=== PATIENT | male | born 1940 | race Caucasian/White ===

== ENCOUNTER 2017-01-18 09:35 | Inpatient (IN) | payer MEDICARE, BC ==
[2017-01-18] VITALS (9 sets, daily range): BP systolic 105–156; BP diastolic 50–83; PULSE 82–87; TEMP 97.5–97.7
[~2017-01-18] VITALS: Ht 175.3 cm; Wt 47.4 kg
[~2017-01-18 09:35] MED LIST: ATENOLOL25 MG PO; B-1100 MG PO; CALCIUM 500500 M2 PO; CENTRUM SILVER1 TAB; CEPHALEXIN500 M1 PO; CLARITIN-D 10 M1 T24 PO; DALMANE30 MG PO; DUO-KAPS1 CAP PO; FLONASE NASAL S16 GM; FOLIC ACID 11 MG/TA1 PO; FOLIC ACID0.8 MG PO; HALCION0.25 MG PO; HCTZ 25MG TAB25 MG PO; HYDRALAZINE HCL25 MG PO; HYDROCHLOR50 MG PO; MASON NATURAL600 MG; NATURE'S BLEND100 M2; NORCO 325 MG-101 TAB PO; OS-CAL 500 + D1 TAB; PRINIVIL20 MG PO; RED YEAST RICE PO; RESTORIL 1515 MG/CAP PO; SINE OFF; TENORMIN 2525 MG/TAB PO; VITAL-D1 TAB PO; [UNRECOGNIZED DRUG - OTHER] PO; [UNRECOGNIZED DRUG - REMARK]
[2017-01-18 10:10] LABS: BASO % 0.2 % (0.0-2.0); EOS % 0.1 % (0-4.0); GRAN # 12.3 (1.4-6.5); GRAN % 79.8 % (42.2-75.2); HEMOGLOBIN 12.3 g/dl (13.5-18.0); LYMPH # 1.5 (1.2-3.4); LYMPH % 9.6 % (20.0-51.0); MEAN CELL VOLUME 98 fl (80.0-100.0); MEAN CORPUSCULAR HEMOGLOBIN 33 pg (27.0-31.0); MEAN CORPUSCULAR HGB CONC 34 g/dl (33.0-37.0); MEAN PLATELET VOLUME 10.1 fl (7.4-10.4); MONO # 1.5 (0.1-0.6); MONO % 9.6 % (1.7-9.3); PLATELET COUNT 290 K/mm3 (130-400); RED BLOOD COUNT 3.75 M/mm3 (4.20-5.60); WHITE BLOOD COUNT 15.3 K/mm3 (4.8-10.8)
[2017-01-18 10:11] LABS: HEMATOCRIT 36.7 % (42.0-52.0)
[2017-01-18 10:23] LABS: ADJUSTED CALCIUM 10.2 mg/dL (8.4-10.2); ALBUMIN 4.3 gm/dL (3.5-5.0); BILIRUBIN,TOTAL 0.6 mg/dL (0.0-1.0); CALCIUM 10.4 mg/dL (8.4-10.2); CREATININE, serum 1.5 mg/dL (0.66-1.25); POTASSIUM 4.8 mmol/L (3.4-5.0); TOTAL PROTEIN 7.2 gm/dL (6.4-8.2)
[2017-01-18] MEDS ORDERED: CLARITIN D TAB1 TAB PO (11:31)
[2017-01-18] MEDS ORDERED: EYE DROP ORIGIN15 ML (11:36)
[2017-01-18] MEDS ORDERED: CLARITIN-D 10 M1 T24 PO (12:31)
[2017-01-18 13:06] LABS: PROTHROMBIN TIME 11.8 SECONDS (9.7-12.8)
[2017-01-19 02:20] VITALS: BP 94/41; PULSE 79; TEMP 98.2
[2017-01-19 05:32] VITALS: BP 145/68; PULSE 85; TEMP 98.2
[2017-01-19 06:54] LABS: CALCIUM 9.5 mg/dL (8.4-10.2); CREATININE, serum 1.33 mg/dL (0.66-1.25); POTASSIUM 5.1 mmol/L (3.4-5.0)
[2017-01-19 09:38] VITALS: BP 131/63; PULSE 93; TEMP 98.3
[2017-01-19 13:26] VITALS: BP 129/60; PULSE 93; TEMP 97.6
[2017-01-19 15:28] LABS: BASO % 0.2 % (0.0-2.0); EOS % 0.2 % (0-4.0); GRAN % 75.2 % (42.2-75.2); LYMPH # 1.5 (1.2-3.4); LYMPH % 11.1 % (20.0-51.0); MEAN CELL VOLUME 99 fl (80.0-100.0); MEAN CORPUSCULAR HGB CONC 33 g/dl (33.0-37.0); MEAN PLATELET VOLUME 10.3 fl (7.4-10.4); MONO # 1.7 (0.1-0.6); MONO % 12.8 % (1.7-9.3); PLATELET COUNT 245 K/mm3 (130-400); RED BLOOD COUNT 3.33 M/mm3 (4.20-5.60); WHITE BLOOD COUNT 13.3 K/mm3 (4.8-10.8)
[2017-01-19 15:30] LABS: HEMATOCRIT 32.8 % (42.0-52.0); HEMOGLOBIN 10.7 g/dl (13.5-18.0); MEAN CORPUSCULAR HEMOGLOBIN 32 pg (27.0-31.0)
[2017-01-19 17:08] VITALS: BP 113/85; PULSE 107; TEMP 98.1
[2017-01-19 21:43] VITALS: BP 125/66; PULSE 106; TEMP 98.4
[2017-01-20 02:04] VITALS: BP 123/47; PULSE 89; TEMP 98.4
[2017-01-20 05:18] VITALS: BP 145/54; PULSE 85; TEMP 98.1
[2017-01-20 06:47] LABS: BASO % 0.2 % (0.0-2.0); EOS # 0.1 (0.0-0.7); EOS % 0.4 % (0-4.0); GRAN # 7.8 (1.4-6.5); GRAN % 69.1 % (42.2-75.2); LYMPH # 1.9 (1.2-3.4); LYMPH % 16.6 % (20.0-51.0); MEAN CELL VOLUME 99 fl (80.0-100.0); MEAN CORPUSCULAR HGB CONC 32 g/dl (33.0-37.0); MEAN PLATELET VOLUME 10.3 fl (7.4-10.4); MONO # 1.5 (0.1-0.6); MONO % 13.3 % (1.7-9.3); PLATELET COUNT 238 K/mm3 (130-400); RED BLOOD COUNT 2.97 M/mm3 (4.20-5.60); WHITE BLOOD COUNT 11.2 K/mm3 (4.8-10.8)
[2017-01-20 06:55] LABS: HEMATOCRIT 29.4 % (42.0-52.0); HEMOGLOBIN 9.5 g/dl (13.5-18.0); MEAN CORPUSCULAR HEMOGLOBIN 32 pg (27.0-31.0)
[2017-01-20 07:04] LABS: CALCIUM 9.2 mg/dL (8.4-10.2); CREATININE, serum 1.02 mg/dL (0.66-1.25); POTASSIUM 4.1 mmol/L (3.4-5.0)
[2017-01-20 09:25] VITALS: BP 130/43; PULSE 102; TEMP 98.7
[2017-01-20 13:18] VITALS: BP 101/46; PULSE 91; TEMP 97.2
[2017-01-20 17:09] VITALS: BP 128/64; PULSE 103; TEMP 97.7
[2017-01-20 21:56] VITALS: BP 142/48; PULSE 110; TEMP 98.9
[2017-01-21 02:34] VITALS: BP 96/49; PULSE 102; TEMP 98.5
[2017-01-21 05:44] VITALS: BP 105/48; PULSE 91; TEMP 98.4
[2017-01-21 10:29] VITALS: BP 118/56; PULSE 78; TEMP 98.1
[2017-01-21 13:33] VITALS: BP 105/48; PULSE 114; TEMP 98.3
[2017-01-21 17:38] VITALS: BP 97/51; PULSE 101; TEMP 98.2
[2017-01-21 22:00] VITALS: BP 95/52; PULSE 104; TEMP 98.2
[2017-01-22 02:25] VITALS: BP 100/48; PULSE 85; TEMP 98.5
[2017-01-22 05:59] VITALS: BP 101/53; PULSE 88; TEMP 97.9
[2017-01-22 06:45] LABS: CALCIUM 9.8 mg/dL (8.4-10.2)
[2017-01-22 07:02] LABS: CREATININE, serum 1.08 mg/dL (0.66-1.25); POTASSIUM 4.2 mmol/L (3.4-5.0)
[2017-01-22] MEDS ORDERED: FLOMAX 0.40.4 MG/CAP PO (07:59)
[2017-01-22] MEDS ORDERED: ASPI325T6 PO (08:00)
[2017-01-22] MEDS ORDERED: TYLENOL 325MG325 MG PO (08:01)
[2017-01-22] MEDS ORDERED: SENOKOT S 50 MG1 TAB PO (08:02)
[2017-01-22] MEDS ORDERED: VITAMINC500CH PO (08:02)
[2017-01-22] MEDS ORDERED: GOOD NEIGH1200 MG/15 PO (08:02)
[2017-01-22] MEDS ORDERED: DULCOLAX S10 MG/SUPP RC (08:02)
[2017-01-22] MEDS ORDERED: NORCO 325 MG-51 TAB PO (08:03)
[2017-01-22 10:00] VITALS: BP 132/72; PULSE 99; TEMP 98.1
[2017-01-22 16:01] VITALS: BP 132/72; PULSE 99; TEMP 98.1
== END 2017-01-22 16:15 | DRG 481 ==
LOC: COL.ER 09:35 → SURG 10:29
PROVIDERS: Family Medicine; Orthopaedic Surgery; Physician Assistant
PROC: 0QS604Z Reposition Right Upper Femur with Internal Fixation Device, Open Approach (ICD-10-PCS; principal; 2017-01-18 17:00)
DX: S72.141A Displaced intertrochanteric fracture of right femur, initial encounter for closed fracture (principal); N17.9 Acute kidney failure, unspecified; E44.0 Moderate protein-calorie malnutrition; Z68.1 Body mass index [BMI] 19.9 or less, adult; E87.1 Hypo-osmolality and hyponatremia; I10 Essential (primary) hypertension; G47.00 Insomnia, unspecified; D64.9 Anemia, unspecified; R33.9 Retention of urine, unspecified; W01.0XXA Fall on same level from slipping, tripping and stumbling without subsequent striking against object, initial encounter; Z87.891 Personal history of nicotine dependence
CPT/HCPCS: 99222-AI; 99231-AI; 99232-AI; 99239; A9284; C1713; C1769; C1776; J0690; J2250; J2270; J2310; J2405; J2704; J2765; J3010; J7120

== ENCOUNTER → 2017-01-26 | Outpatient (CLI) | payer MEDICARE, BC ==
[~2017-01-26] MED LIST changes: +AMOXICILLIN 8751 TAB PO; +ASPI325T6 PO; +CLARITIN D TAB1 TAB PO; +DULCOLAX S10 MG/SUPP RC; +EYE DROP ORIGIN15 ML; +FLOMAX 0.40.4 MG/CAP PO; +GOOD NEIGH1200 MG/15 PO; +LOPRESSOR 225 MG/TAB PO; +NORCO 325 MG-51 TAB PO; +SENOKOT S 50 MG1 TAB PO; +TYLENOL 325MG325 MG PO; +VITAMINC500CH PO; +ZESTRIL 5MG5 MG PO
== END ==
LOC: COL.RAD 17:37
DX: R05 Cough (principal)

== ENCOUNTER → 2017-02-05 | Outpatient (REF) ==
[2017-02-05 16:10] LABS: MEAN CELL VOLUME 99 fl (80.0-100.0); MEAN CORPUSCULAR HGB CONC 33 g/dl (33.0-37.0); MEAN PLATELET VOLUME 11.6 fl (7.4-10.4); PLATELET COUNT 386 K/mm3 (130-400); RED BLOOD COUNT 3.56 M/mm3 (4.20-5.60); WHITE BLOOD COUNT 13.7 K/mm3 (4.8-10.8)
[2017-02-05 16:13] LABS: CALCIUM 8.7 mg/dL (8.4-10.2); CREATININE, serum 1.03 mg/dL (0.66-1.25); POTASSIUM 3.4 mmol/L (3.4-5.0)
[2017-02-05 16:17] LABS: HEMATOCRIT 35.1 % (42.0-52.0); HEMOGLOBIN 11.4 g/dl (13.5-18.0); MEAN CORPUSCULAR HEMOGLOBIN 32 pg (27.0-31.0)
== END ==
LOC: ZLAB.STJ 16:00
DX: E87.6 Hypokalemia (principal); D64.9 Anemia, unspecified

== ENCOUNTER → 2017-02-07 | Outpatient (REF) ==
[2017-02-07 10:11] LABS: BASO # 0.1 (0.0-0.2); BASO % 0.5 % (0.0-2.0); EOS # 0.2 (0.0-0.7); EOS % 1.7 % (0-4.0); GRAN # 7.8 (1.4-6.5); GRAN % 67.8 % (42.2-75.2); HEMATOCRIT 37.9 % (42.0-52.0); HEMOGLOBIN 12.1 g/dl (13.5-18.0); LYMPH # 2.3 (1.2-3.4); LYMPH % 20.2 % (20.0-51.0); MEAN CELL VOLUME 98 fl (80.0-100.0); MEAN CORPUSCULAR HEMOGLOBIN 31 pg (27.0-31.0); MEAN CORPUSCULAR HGB CONC 32 g/dl (33.0-37.0); MEAN PLATELET VOLUME 11.9 fl (7.4-10.4); MONO # 1.1 (0.1-0.6); MONO % 9.3 % (1.7-9.3); PLATELET COUNT 370 K/mm3 (130-400); RED BLOOD COUNT 3.87 M/mm3 (4.20-5.60); WHITE BLOOD COUNT 11.5 K/mm3 (4.8-10.8)
== END ==
LOC: ZLAB.STJ 09:54
PROVIDERS: Family Medicine
DX: R68.89 Other general symptoms and signs (principal)

== ENCOUNTER → 2017-02-10 | Outpatient (REF) ==
[2017-02-10 16:54] LABS: BASO # 0.1 (0.0-0.2); BASO % 0.8 % (0.0-2.0); EOS # 0.4 (0.0-0.7); EOS % 3.8 % (0-4.0); GRAN # 6.9 (1.4-6.5); GRAN % 68.8 % (42.2-75.2); HEMATOCRIT 35.7 % (42.0-52.0); HEMOGLOBIN 11.5 g/dl (13.5-18.0); LYMPH # 1.7 (1.2-3.4); LYMPH % 17.4 % (20.0-51.0); MEAN CELL VOLUME 98 fl (80.0-100.0); MEAN CORPUSCULAR HEMOGLOBIN 32 pg (27.0-31.0); MEAN CORPUSCULAR HGB CONC 32 g/dl (33.0-37.0); MEAN PLATELET VOLUME 11.7 fl (7.4-10.4); MONO # 0.9 (0.1-0.6); MONO % 8.9 % (1.7-9.3); PLATELET COUNT 361 K/mm3 (130-400); RED BLOOD COUNT 3.63 M/mm3 (4.20-5.60); REDCELL DISTRIBUTION WIDTH-CV 14.4 % (11.5-14.5)
== END ==
LOC: ZLAB.STJ 16:50
DX: Z01.89 Encounter for other specified special examinations (principal)

== ENCOUNTER 2017-03-14 14:26 | Inpatient (IN) | payer MEDICARE, BC ==
[~2017-03-14] VITALS: Ht 175.3 cm; Wt 44.4 kg
[~2017-03-14 14:26] MED LIST changes: -MASON NATURAL600 MG; +MASON NATURAL600 MG PO
[2017-03-14 15:49] LABS: BASO % 0.2 % (0.0-2.0); EOS % 0.3 % (0-4.0); GRAN # 10.8 (1.4-6.5); GRAN % 76.6 % (42.2-75.2); HEMOGLOBIN 13.1 g/dl (13.5-18.0); LYMPH # 2.3 (1.2-3.4); LYMPH % 16.1 % (20.0-51.0); MEAN CELL VOLUME 96 fl (80.0-100.0); MEAN CORPUSCULAR HEMOGLOBIN 30 pg (27.0-31.0); MEAN CORPUSCULAR HGB CONC 31 g/dl (33.0-37.0); MEAN PLATELET VOLUME 10.7 fl (7.4-10.4); MONO # 0.9 (0.1-0.6); MONO % 6.3 % (1.7-9.3); PLATELET COUNT 375 K/mm3 (130-400); RED BLOOD COUNT 4.38 M/mm3 (4.20-5.60); REDCELL DISTRIBUTION WIDTH-CV 13.2 % (11.5-14.5)
[2017-03-14 15:51] LABS: INR 1.2 (0.8-3.0); PROTHROMBIN TIME 13.9 SECONDS (9.7-12.8)
[2017-03-14 16:05] LABS: ALANINE AMINOTRANSFERASE 39 U/L (21-72); ALBUMIN 3.7 gm/dL (3.5-5.0); ALKALINE PHOSPHATASE 147 U/L (50-136); ANION GAP 13 mmol/L (7-16); AST,SGOT 31 U/L (15-37); BILIRUBIN,TOTAL 0.7 mg/dL (0.0-1.0); BLOOD UREA NITROGEN 80 mg/dL (9-20); CALCIUM 9.6 mg/dL (8.4-10.2); CARBON DIOXIDE 28 mmol/L (22-30); CHLORIDE 106 mmol/L (98-107); CREATININE, serum 2.03 mg/dL (0.66-1.25); GLUCOSE 95 mg/dL (74-106); MAGNESIUM 2.7 mg/dL (1.6-2.3); PHOSPHOROUS 4.5 mg/dL (2.5-4.5); POTASSIUM 4.6 mmol/L (3.4-5.0); SODIUM 147 mmol/L (137-145); TOTAL PROTEIN 7.2 gm/dL (6.4-8.2)
[2017-03-14 16:13] LABS: TROPONIN-I 0.023 ng/mL (0.000-0.034)
[2017-03-14 17:19] LABS: COLLECTION METHOD CATHETER
[2017-03-14 17:27] LABS: PH 5 (5-8); SQUAMOUS EPITHELIAL None Seen /hpf; URINE APPEARANCE Hazy; URINE BACTERIA None Seen /hpf; URINE BILIRUBIN Negative (NEGATIVE); URINE BLOOD Negative (NEGATIVE); URINE COLOR Yellow; URINE GLUCOSE Negative (NEGATIVE); URINE KETONE Trace (NEGATIVE); URINE LEUKOCYTE ESTERASE Negative (NEGATIVE); URINE NITRATE Negative (NEGATIVE); URINE PROTEIN(semi-quant) Negative (NEGATIVE); URINE UROBILINOGEN Negative (NEGATIVE)
[2017-03-14] MEDS ORDERED: CLARITIN-D 10 M1 T24 PO (17:45)
[2017-03-14] MEDS ORDERED: FLONASEALLERGY NS (17:46)
[2017-03-14] MEDS ORDERED: CALCIUM 600-D 61 TAB PO (17:47)
[2017-03-14] MEDS ORDERED: NATURE'S BLEND100 M2 PO ×2 (17:47→20:16)
[2017-03-14] MEDS ORDERED: CENTRUM SILVER1 TAB PO (17:48)
[2017-03-14] MEDS ORDERED: BENADRYL25 M2 PO (17:49)
[2017-03-14] MEDS ORDERED: DALMANE30 MG PO (17:50)
[2017-03-14 19:35] VITALS: BP 131/80; PULSE 102; TEMP 98
[2017-03-14 19:38] VITALS: BP 131/80; PULSE 102; TEMP 98
[2017-03-14 20:07] LABS: ALCOHOL(ethanol),MEDICAL < 10 mg/dL; CREATINE KINASE < 20 U/L (55-170)
[2017-03-14] MEDS ORDERED: FOLIC ACID 11 MG/TA1 PO (20:16)
[2017-03-15] VITALS (7 sets, daily range): BP systolic 100–140; BP diastolic 40–56; PULSE 45–81; TEMP 97.2–97.8
[2017-03-15 04:27] LABS: BASO % 0.4 % (0.0-2.0); EOS # 0.2 (0.0-0.7); EOS % 1.3 % (0-4.0); GRAN # 6.5 (1.4-6.5); GRAN % 57.5 % (42.2-75.2); HEMATOCRIT 41.7 % (42.0-52.0); HEMOGLOBIN 12.7 g/dl (13.5-18.0); LYMPH # 3.9 (1.2-3.4); MEAN CELL VOLUME 98 fl (80.0-100.0); MEAN CORPUSCULAR HEMOGLOBIN 30 pg (27.0-31.0); MEAN CORPUSCULAR HGB CONC 31 g/dl (33.0-37.0); MEAN PLATELET VOLUME 10.7 fl (7.4-10.4); MONO # 0.7 (0.1-0.6); MONO % 6.3 % (1.7-9.3); PLATELET COUNT 328 K/mm3 (130-400); RED BLOOD COUNT 4.27 M/mm3 (4.20-5.60); REDCELL DISTRIBUTION WIDTH-CV 13.1 % (11.5-14.5)
[2017-03-15 04:39] LABS: PARTIAL THROMBOPLASTIN TIME 29.4 SECONDS (26.0-37.0)
[2017-03-15 04:40] LABS: CALCIUM 9.1 mg/dL (8.4-10.2); CREATININE, serum 1.41 mg/dL (0.66-1.25); MAGNESIUM 2.3 mg/dL (1.6-2.3); PHOSPHOROUS 3.5 mg/dL (2.5-4.5); POTASSIUM 4.4 mmol/L (3.4-5.0)
[2017-03-16] VITALS (9 sets, daily range): BP systolic 101–122; BP diastolic 43–63; PULSE 58–104; TEMP 97.9–98.3
[2017-03-16 12:23] LABS: CALCIUM 9.1 mg/dL (8.4-10.2); CREATININE, serum 1.09 mg/dL (0.66-1.25); MAGNESIUM 2.1 mg/dL (1.6-2.3); PHOSPHOROUS 2.5 mg/dL (2.5-4.5)
[2017-03-16 12:33] LABS: POTASSIUM 4.1 mmol/L (3.4-5.0)
[2017-03-16 12:34] LABS: BASO % 0.2 % (0.0-2.0); EOS # 0.2 (0.0-0.7); EOS % 1.9 % (0-4.0); GRAN # 6.2 (1.4-6.5); GRAN % 66.2 % (42.2-75.2); LYMPH # 2.3 (1.2-3.4); LYMPH % 24.7 % (20.0-51.0); MEAN CELL VOLUME 98 fl (80.0-100.0); MEAN CORPUSCULAR HGB CONC 31 g/dl (33.0-37.0); MONO # 0.6 (0.1-0.6); MONO % 6.6 % (1.7-9.3); PLATELET COUNT 273 K/mm3 (130-400); RED BLOOD COUNT 3.54 M/mm3 (4.20-5.60); REDCELL DISTRIBUTION WIDTH-CV 12.9 % (11.5-14.5)
[2017-03-16 12:36] LABS: HEMATOCRIT 34.5 % (42.0-52.0); HEMOGLOBIN 10.8 g/dl (13.5-18.0); MEAN CORPUSCULAR HEMOGLOBIN 31 pg (27.0-31.0)
[2017-03-16 16:56] LABS: PRE ALBUMIN 11.1 mg/dL (17.6-36.0)
[2017-03-16 17:19] LABS: TSH w REFLEX 0.43 uIU/mL (0.465-4.680)
[2017-03-17 00:20] LABS: FOLATE (FOLIC ACID) 15.8 ng/mL (7.0-31.4)
[2017-03-17 04:22] VITALS: BP 117/59; PULSE 58; TEMP 98.2
[2017-03-17 05:39] LABS: TRICYCLIC ANTIDEPRESS URINE NEGATIVE
[2017-03-17 07:28] VITALS: BP 123/61; PULSE 70; TEMP 98
[2017-03-17 07:34] LABS: BASO % 0.2 % (0.0-2.0); EOS # 0.4 (0.0-0.7); EOS % 4.3 % (0-4.0); GRAN # 5.2 (1.4-6.5); GRAN % 59.8 % (42.2-75.2); HEMATOCRIT 37.8 % (42.0-52.0); LYMPH # 2.4 (1.2-3.4); LYMPH % 27.3 % (20.0-51.0); MEAN CELL VOLUME 96 fl (80.0-100.0); MEAN CORPUSCULAR HEMOGLOBIN 31 pg (27.0-31.0); MEAN CORPUSCULAR HGB CONC 32 g/dl (33.0-37.0); MONO # 0.7 (0.1-0.6); MONO % 7.9 % (1.7-9.3); PLATELET COUNT 295 K/mm3 (130-400); RED BLOOD COUNT 3.94 M/mm3 (4.20-5.60); REDCELL DISTRIBUTION WIDTH-CV 12.7 % (11.5-14.5)
[2017-03-17 07:50] LABS: CALCIUM 9.2 mg/dL (8.4-10.2); CREATININE, serum 0.99 mg/dL (0.66-1.25); MAGNESIUM 1.8 mg/dL (1.6-2.3); PHOSPHOROUS 2.7 mg/dL (2.5-4.5); POTASSIUM 3.9 mmol/L (3.4-5.0)
[2017-03-17 11:32] VITALS: BP 109/60; PULSE 75; TEMP 97.5
[2017-03-17 16:18] VITALS: BP 111/43; PULSE 78; TEMP 97.7
[2017-03-17 19:53] VITALS: BP 124/63; PULSE 73; TEMP 98.3
[2017-03-17 23:59] VITALS: BP 146/74; PULSE 69; TEMP 98.4
[2017-03-18 06:29] VITALS: BP 145/87; PULSE 81; TEMP 98.7
[2017-03-18 07:03] LABS: BASO % 0.3 % (0.0-2.0); EOS # 0.3 (0.0-0.7); EOS % 2.8 % (0-4.0); GRAN # 5.4 (1.4-6.5); HEMATOCRIT 38.3 % (42.0-52.0); LYMPH # 3.1 (1.2-3.4); MEAN CELL VOLUME 97 fl (80.0-100.0); MEAN CORPUSCULAR HEMOGLOBIN 30 pg (27.0-31.0); MEAN CORPUSCULAR HGB CONC 31 g/dl (33.0-37.0); MEAN PLATELET VOLUME 11.2 fl (7.4-10.4); MONO # 0.8 (0.1-0.6); MONO % 8.5 % (1.7-9.3); PLATELET COUNT 292 K/mm3 (130-400); RED BLOOD COUNT 3.97 M/mm3 (4.20-5.60); REDCELL DISTRIBUTION WIDTH-CV 12.8 % (11.5-14.5)
[2017-03-18 07:13] LABS: HEMOGLOBIN 11.9 g/dl (13.5-18.0)
[2017-03-18 07:23] LABS: CALCIUM 8.8 mg/dL (8.4-10.2); CREATININE, serum 1.01 mg/dL (0.66-1.25); MAGNESIUM 1.6 mg/dL (1.6-2.3); PHOSPHOROUS 2.7 mg/dL (2.5-4.5); POTASSIUM 3.4 mmol/L (3.4-5.0)
[2017-03-18 07:42] VITALS: BP 131/63; PULSE 55; TEMP 98.3
[2017-03-18 11:44] VITALS: BP 139/59; PULSE 56; TEMP 98.4
[2017-03-18 16:05] VITALS: BP 114/88; PULSE 89; TEMP 98.4
[2017-03-18 20:46] VITALS: BP 137/47; PULSE 79; TEMP 98.5
[2017-03-19] VITALS (7 sets, daily range): BP systolic 90–139; BP diastolic 46–67; PULSE 51–96; TEMP 97.8–99.6
[2017-03-19 07:35] LABS: ALBUMIN 2.7 gm/dL (3.5-5.0); BILIRUBIN,TOTAL 0.4 mg/dL (0.0-1.0); CALCIUM 8.1 mg/dL (8.4-10.2); CREATININE, serum 0.96 mg/dL (0.66-1.25); MAGNESIUM 2.4 mg/dL (1.6-2.3); PHOSPHOROUS 1.9 mg/dL (2.5-4.5); POTASSIUM 3.9 mmol/L (3.4-5.0); TOTAL PROTEIN 5.5 gm/dL (6.4-8.2)
[2017-03-19 07:42] LABS: PRE ALBUMIN 9.5 mg/dL (17.6-36.0)
[2017-03-20 03:51] VITALS: BP 102/64; PULSE 82; TEMP 97.9
[2017-03-20 06:57] LABS: ALBUMIN 3.1 gm/dL (3.5-5.0); BILIRUBIN,TOTAL 0.5 mg/dL (0.0-1.0); CALCIUM 8.6 mg/dL (8.4-10.2); CREATININE, serum 1.06 mg/dL (0.66-1.25); MAGNESIUM 1.8 mg/dL (1.6-2.3); PHOSPHOROUS 2.6 mg/dL (2.5-4.5); POTASSIUM 3.2 mmol/L (3.4-5.0); TOTAL PROTEIN 6.1 gm/dL (6.4-8.2)
[2017-03-20 07:40] VITALS: BP 97/55; PULSE 103; TEMP 97.6
[2017-03-20 11:10] VITALS: BP 92/75; PULSE 62; TEMP 98.7
[2017-03-20 15:51] VITALS: BP 110/94; PULSE 105; PULSE 134; TEMP 98
[2017-03-20 21:19] VITALS: BP 93/57; PULSE 58; TEMP 98.6
[2017-03-21 01:30] VITALS: BP 93/49; PULSE 78; TEMP 98.3
[2017-03-21 04:09] VITALS: BP 107/53; PULSE 98; TEMP 98
[2017-03-21 06:53] LABS: ALBUMIN 2.7 gm/dL (3.5-5.0); BILIRUBIN,TOTAL 0.5 mg/dL (0.0-1.0); CALCIUM 8.6 mg/dL (8.4-10.2); CREATININE, serum 1.12 mg/dL (0.66-1.25); MAGNESIUM 1.7 mg/dL (1.6-2.3); PHOSPHOROUS 2.7 mg/dL (2.5-4.5); POTASSIUM 3.5 mmol/L (3.4-5.0); TOTAL PROTEIN 5.6 gm/dL (6.4-8.2)
[2017-03-21 07:49] VITALS: BP 119/53; PULSE 85; TEMP 97.9
[2017-03-21] MEDS ORDERED: IMDUR 30MG30 MG/TAB PO (11:51)
[2017-03-21] MEDS ORDERED: ASPIRIN 81M81 MG/TA2 PO (11:52)
[2017-03-21] MEDS ORDERED: TYLENOL ELIX32 MG/M2 PO (11:52)
[2017-03-21] MEDS ORDERED: MIRTAZAPINE7.5 MG PO (11:53)
[2017-03-21] MEDS ORDERED: EPA FISH OIL1 SGL PO (11:55)
[2017-03-21 11:59] VITALS: BP 95/45; PULSE 82; TEMP 97.9
[2017-03-21 13:21] VITALS: BP 101/64
[2017-03-21 13:25] VITALS: BP 101/64; PULSE 82; TEMP 97.9
== END 2017-03-21 16:51 | DRG 682 ==
LOC: COL.ER 14:26 → PEDS 17:19 → EDBEDREQ 17:30 → PEDS 03-15 10:00
PROVIDERS: Emergency Medicine; Internal Medicine; Nurse Practitioner Family
PROC: 0DH63UZ Insertion of Feeding Device into Stomach, Percutaneous Approach (ICD-10-PCS; principal; 2017-03-18)
DX: N17.9 Acute kidney failure, unspecified (principal); R65.11 Systemic inflammatory response syndrome (SIRS) of non-infectious origin with acute organ dysfunction; I21.4 Non-ST elevation (NSTEMI) myocardial infarction; E43 Unspecified severe protein-calorie malnutrition; G72.1 Alcoholic myopathy; Z68.1 Body mass index [BMI] 19.9 or less, adult; E87.0 Hyperosmolality and hypernatremia; F10.14 Alcohol abuse with alcohol-induced mood disorder; G62.1 Alcoholic polyneuropathy; S72.141D Displaced intertrochanteric fracture of right femur, subsequent encounter for closed fracture with routine healing; I10 Essential (primary) hypertension; J44.9 Chronic obstructive pulmonary disease, unspecified; Z87.891 Personal history of nicotine dependence; W18.30XA Fall on same level, unspecified, initial encounter; E86.0 Dehydration; E87.6 Hypokalemia; E16.2 Hypoglycemia, unspecified
CPT/HCPCS: 99222-AI; 99232-AI; 99233-AI; 99239; J1644; J2270; J3411; J3475; J3480; J7030; J7070; J7120; J7121

== ENCOUNTER → 2017-04-25 | Outpatient (REF) ==
[~2017-04-25] MED LIST changes: +ASPIRIN 81M81 MG/TA2 PO; +BENADRYL25 M2 PO; +CALCIUM 600-D 61 TAB PO; +CENTRUM SILVER1 TAB PO; +EPA FISH OIL1 SGL PO; +FLONASEALLERGY NS; +IMDUR 30MG30 MG/TAB PO; +MIRTAZAPINE7.5 MG PO; +NATURE'S BLEND100 M2 PO; +TYLENOL ELIX32 MG/M2 PO
[2017-04-25 17:15] LABS: BASO % 0.1 % (0.0-2.0); EOS % 0.1 % (0-4.0); GRAN # 9.3 (1.4-6.5); GRAN % 78.1 % (42.2-75.2); LYMPH # 1.6 (1.2-3.4); LYMPH % 13.1 % (20.0-51.0); MEAN CELL VOLUME 101 fl (80.0-100.0); MEAN CORPUSCULAR HGB CONC 31 g/dl (33.0-37.0); MEAN PLATELET VOLUME 12.4 fl (7.4-10.4); PLATELET COUNT 339 K/mm3 (130-400); RED BLOOD COUNT 2.16 M/mm3 (4.20-5.60); REDCELL DISTRIBUTION WIDTH-CV 15.9 % (11.5-14.5)
[2017-04-25 17:21] LABS: HEMATOCRIT 21.9 % (42.0-52.0); HEMOGLOBIN 6.7 g/dl (13.5-18.0); MEAN CORPUSCULAR HEMOGLOBIN 31 pg (27.0-31.0)
[2017-04-25 17:26] LABS: CALCIUM 8.9 mg/dL (8.4-10.2); CREATININE, serum 2.14 mg/dL (0.66-1.25); POTASSIUM 4.6 mmol/L (3.4-5.0)
== END ==
LOC: ZCOL.LAB 17:09
PROVIDERS: Family Medicine
DX: T81.4XXA Infection following a procedure, initial encounter (principal); I10 Essential (primary) hypertension

== ENCOUNTER 2017-04-27 08:30 | Outpatient (RCR) | payer MEDICARE, BC | END 2017-07-25 | disposition home or self-care (01) | LOC: EUO | DX: D64.9 Anemia, unspecified (principal); Z53.8 Procedure and treatment not carried out for other reasons ==